=== PATIENT | female | born 1960 | race Caucasian/White ===

== ENCOUNTER 2017-12-02 08:35 | Day surgery (SDC) | payer OTHER ==
[2017-12-02 10:19] LABS: INR 2.1; PARTIAL THROMBOPLASTIN TIME 36.5 sec (23.4-31.0); PROTHROMBIN TIME 22.4 sec (9.4-11.6)
[2017-12-02] MEDS ORDERED: METO1TAB26 PO (10:28)
[2017-12-02] MEDS ORDERED: GLIP10TA10 PO (10:28)
[2017-12-02] MEDS ORDERED: ASPI-1158 PO (10:28)
[2017-12-02] MEDS ORDERED: INSU100I28 SQ (10:28)
[2017-12-02] MEDS ORDERED: METF850T2 PO (10:28)
[2017-12-02] MEDS ORDERED: [UNRECOGNIZED DRUG - OTHER] (10:28)
[2017-12-02] MEDS ORDERED: WARF3TAB28 PO (10:28)
[2017-12-02] MEDS ORDERED: IOHEXOL-300 100 ML BOTTLE ONE (11:23)
[2017-12-02] MEDS ORDERED: LIDOCAINE HCL/PF 1% 10 MG/ML 5ML VIAL ONE (11:23)
[2017-12-02] MEDS ORDERED: FENTANYL CITRATE/PF 50MCG/ML 2ML VIAL ONE (11:32)
[2017-12-02] MEDS ORDERED: MIDAZOLAM HCL 2 MG/2 ML VIAL ONE (11:32)
== END 2017-12-02 15:00 | disposition home or self-care (01) ==
LOC: CCL 08:35
PROVIDERS: ATTEND Specialist
DX: R94.39 Abnormal result of other cardiovascular function study (principal); E66.9 Obesity, unspecified; Z79.01 Long term (current) use of anticoagulants; E78.4 Other hyperlipidemia; I11.9 Hypertensive heart disease without heart failure; I20.9 Angina pectoris, unspecified; Z79.82 Long term (current) use of aspirin
CPT/HCPCS: 36415; 82962; 85610; 85730; 93458; 99152; C1769; C1887; C1893; J1644; J2250; J3010; J3490; Q9967

== ENCOUNTER 2018-04-26 16:58 | Inpatient (IN) | payer OTHER ==
[~2018-04-26] VITALS: Ht 182.9 cm; Wt 104.3 kg
[~2018-04-26 16:58] MED LIST: ASPI-1158 PO; GLIP10TA10 PO; INSU100I28 SQ; METF850T2 PO; METO1TAB26 PO; WARF3TAB28 PO; [UNRECOGNIZED DRUG - OTHER]
[2018-04-26 19:06] LABS: BASOPHILS % 0.7 % (0.0-2.0); EOSINOPHILS % 3.2 % (0.0-5.0); LYMPHOCYTES % 21.1 % (20.0-50.0); MEAN CORPUSCULAR HEMOGLOBIN 22.5 pg (28.0-32.0); MEAN CORPUSCULAR VOLUME 75.2 fL (81.0-99.0); MEAN PLATELET VOLUME 6.9 fl (7.4-10.4); MONOCYTES % 7.8 % (2.0-8.0); NEUTROPHILS % 67.2 % (40.0-76.0); PLATELET 462 x1000/uL (130-400); RED BLOOD CELL COUNT 2.78 mill/uL (4.2-5.4)
[2018-04-26 19:08] LABS: HEMATOCRIT. 20.9 % (36.0-48.0); HEMOGLOBIN. 6.3 g/dL (12.0-16.0)
[2018-04-26 19:09] LABS: CHLORIDE 103 mEq/L (98-107)
[2018-04-26 19:10] LABS: INR 1.9; PROTHROMBIN TIME 18.8 sec (9.1-11.1)
[2018-04-26 20:17] LABS: TOTAL IRON BINDING CAPACITY 426 ug/dL (250-450)
[2018-04-26 23:00] VITALS: BP 130/65
[2018-04-26] MEDS ORDERED: LISI-186 MT (23:56)
[2018-04-26] MEDS ORDERED: NATE60TA PO (23:56)
[2018-04-26] MEDS ORDERED: LEVO88TA7 MT (23:57)
[2018-04-27] VITALS (8 sets, daily range): BP systolic 120–145; BP diastolic 48–66
[2018-04-27] MEDS ORDERED: DULA1.5P SQ (00:01)
[2018-04-27] MEDS ORDERED: METO-385 MT (00:01)
[2018-04-27] MEDS ORDERED: INSU100I28 SQ (00:01)
[2018-04-27] MEDS ORDERED: DEXTROSE 50% WATER 50ML SYRINGE IV PRN (00:45)
[2018-04-27 06:46] LABS: CHLORIDE 103 mEq/L (98-107)
[2018-04-27 06:51] LABS: BASOPHILS % 0.7 % (0.0-2.0); EOSINOPHILS % 2.9 % (0.0-5.0); LYMPHOCYTES % 17.4 % (20.0-50.0); MEAN PLATELET VOLUME 7.2 fl (7.4-10.4); MONOCYTES % 8.7 % (2.0-8.0); NEUTROPHILS % 70.3 % (40.0-76.0); PLATELET 429 x1000/uL (130-400); RED BLOOD CELL COUNT 2.72 mill/uL (4.2-5.4); RED CELL DISTRIBUTION WIDTH 18.8 % (11.6-14.6)
[2018-04-27] MEDS ORDERED: GLIPIZIDE 10MG TABLET PO SCH (07:00)
[2018-04-27] MEDS: INSULIN LISPRO 100 UNITS/ML SUBCUT SCH ×3 (07:50→17:50)
[2018-04-27] MEDS: BLOOD SUGAR DIAGNOSTIC STRIP TEST SCH ×3 (08:19→17:21)
[2018-04-27 08:30] LABS: HEMOGLOBIN. 6.5 g/dL (12.0-16.0)
[2018-04-27 08:31] LABS: HEMATOCRIT. 20.6 % (36.0-48.0)
[2018-04-27] MEDS ORDERED: PANTOPRAZOLE SODIUM 40 MG/VIAL IV SCH (09:00)
[2018-04-27] MEDS: METOPROLOL TARTRATE 25MG TABLET PO SCH ×2 (09:24→17:21)
[2018-04-27 16:14] LABS: HEMOGLOBIN. 7.3 g/dL (12.0-16.0); LYMPHOCYTES % 20.6 % (20.0-50.0); MEAN CORPUSCULAR HEMOGLOBIN 24.3 pg (28.0-32.0); MEAN CORPUSCULAR VOLUME 76.6 fL (81.0-99.0); MONOCYTES % 8.9 % (2.0-8.0); NEUTROPHILS % 65.5 % (40.0-76.0); PLATELET 429 x1000/uL (130-400); RED CELL DISTRIBUTION WIDTH 18.9 % (11.6-14.6)
[2018-04-27] MEDS ORDERED: ATORVASTATIN CALCIUM 10MG TABLET PO SCH (21:00)
== END 2018-04-27 18:40 | disposition home or self-care (01) | DRG 812 ==
LOC: ER 16:58 → 6WST 19:51 → ENRESERV 20:20 → CANRESERV 20:20
PROC: 30233N1 Transfusion of Nonautologous Red Blood Cells into Peripheral Vein, Percutaneous Approach (ICD-10-PCS; principal; 2018-04-27)
DX: D64.9 Anemia, unspecified (principal); E11.9 Type 2 diabetes mellitus without complications; E78.5 Hyperlipidemia, unspecified; E66.09 Other obesity due to excess calories; I11.9 Hypertensive heart disease without heart failure; Z78.0 Asymptomatic menopausal state; Z79.01 Long term (current) use of anticoagulants; Z79.4 Long term (current) use of insulin; Z68.31 Body mass index [BMI] 31.0-31.9, adult; Z86.711 Personal history of pulmonary embolism; Z79.82 Long term (current) use of aspirin; Z79.84 Long term (current) use of oral hypoglycemic drugs; Z79.899 Other long term (current) drug therapy; Z98.891 History of uterine scar from previous surgery
CPT/HCPCS: 36415; 36430; 71045; 80048; 80053; 82962; 83540; 83550; 83690; 83880; 84484; 85025; 85044; 85610; 85730; 86850; 86900; 86920; 93005; 99285; J7040; J7050; P9016

== ENCOUNTER 2018-05-04 09:23 | Inpatient (IN) | payer OTHER ==
[~2018-05-04] VITALS: Ht 185.4 cm; Wt 144.2 kg
[~2018-05-04 09:23] MED LIST changes: -ASPI-1158 PO; +DULA1.5P SQ; -GLIP10TA10 PO; +LEVO88TA7 MT; +LISI-186 MT; +METO-385 MT; +NATE60TA PO; -WARF3TAB28 PO
[2018-05-04 10:21] LABS: CHLORIDE 100 mEq/L (98-107); INR 1.9
[2018-05-04 10:33] LABS: BASOPHILS % 0.5 % (0.0-2.0); EOSINOPHILS % 4.8 % (0.0-5.0); HEMATOCRIT. 24.6 % (36.0-48.0); HEMOGLOBIN. 7.8 g/dL (12.0-16.0); LYMPHOCYTES % 17.8 % (20.0-50.0); MEAN CORPUSCULAR HEMOGLOBIN 24.3 pg (28.0-32.0); MEAN CORPUSCULAR VOLUME 76.6 fL (81.0-99.0); MONOCYTES % 8.3 % (2.0-8.0); NEUTROPHILS % 68.6 % (40.0-76.0); PLATELET 457 x1000/uL (130-400); RED BLOOD CELL COUNT 3.21 mill/uL (4.2-5.4); RED CELL DISTRIBUTION WIDTH 20.3 % (11.6-14.6)
[2018-05-04 14:20] VITALS: BP 125/52
[2018-05-04 16:00] VITALS: BP 115/47
[2018-05-04 16:14] VITALS: BP 132/74
[2018-05-04] MEDS ORDERED: LISI-186 MT (18:24)
[2018-05-04] MEDS ORDERED: METO-396 MT (18:24)
[2018-05-04] MEDS ORDERED: DULA1.5P SQ (18:24)
[2018-05-04] MEDS ORDERED: WARF3TAB58 MT (18:24)
[2018-05-04] MEDS ORDERED: LEVO88TA7 MT (18:24)
[2018-05-04] MEDS ORDERED: INSU100I28 SQ (18:24)
[2018-05-04] MEDS ORDERED: ROSU10TA MT (18:24)
[2018-05-04] MEDS ORDERED: NATE60TA MT (18:24)
[2018-05-04] MEDS ORDERED: ASPI81TA47 MT (18:24)
[2018-05-04] MEDS ORDERED: METF10004 MT (18:24)
[2018-05-04 20:00] VITALS: BP 122/63
[2018-05-04 21:44] LABS: HEMATOCRIT 25.4 % (36.0-48.0); HEMOGLOBIN 7.9 g/dL (12.0-16.0)
[2018-05-04 21:50] LABS: INR 1.9; PROTHROMBIN TIME 18.9 sec (9.1-11.1)
[2018-05-04 22:43] VITALS: BP 125/46
[2018-05-04 23:43] VITALS: BP 133/64
[2018-05-05] VITALS: BP 133/64
[2018-05-05 00:43] VITALS: BP 120/51
[2018-05-05 01:35] VITALS: BP 139/64
[2018-05-05 02:28] LABS: HEMATOCRIT 27.1 % (36.0-48.0)
[2018-05-05 02:33] LABS: INR 1.9; PROTHROMBIN TIME 18.7 sec (9.1-11.1)
[2018-05-05 04:00] VITALS: BP 133/52
[2018-05-05 06:33] LABS: BASOPHILS % 0.6 % (0.0-2.0); EOSINOPHILS % 5.5 % (0.0-5.0); HEMATOCRIT. 26.4 % (36.0-48.0); HEMOGLOBIN. 8.6 g/dL (12.0-16.0); LYMPHOCYTES % 20.6 % (20.0-50.0); MEAN CORPUSCULAR HEMOGLOBIN 25.1 pg (28.0-32.0); MEAN CORPUSCULAR VOLUME 77.6 fL (81.0-99.0); MEAN PLATELET VOLUME 7.2 fl (7.4-10.4); MONOCYTES % 8.6 % (2.0-8.0); NEUTROPHILS % 64.7 % (40.0-76.0); PLATELET 394 x1000/uL (130-400); RED CELL DISTRIBUTION WIDTH 20.1 % (11.6-14.6)
[2018-05-05 07:45] LABS: CHLORIDE 104 mEq/L (98-107)
[2018-05-05 08:00] VITALS: BP 121/41
[2018-05-05 09:24] VITALS: BP 121/41
== END 2018-05-05 10:40 | disposition home or self-care (01) | DRG 812 ==
LOC: ER 09:51 → 6EST 11:22 → EDBEDREQ 11:33 → ENRESERV 11:58
PROVIDERS: ATTEND Specialist
PROC: 30233N1 Transfusion of Nonautologous Red Blood Cells into Peripheral Vein, Percutaneous Approach (ICD-10-PCS; principal; 2018-05-04)
DX: D64.9 Anemia, unspecified (principal); E11.65 Type 2 diabetes mellitus with hyperglycemia; E78.5 Hyperlipidemia, unspecified; I11.9 Hypertensive heart disease without heart failure; N92.0 Excessive and frequent menstruation with regular cycle; I51.7 Cardiomegaly; Z79.01 Long term (current) use of anticoagulants; Z79.4 Long term (current) use of insulin; Z86.711 Personal history of pulmonary embolism
CPT/HCPCS: 36415; 71045; 80048; 80053; 85014; 85018; 85025; 85049; 85384; 85610; 86850; 86900; 86920; 99285; J7030; J7040; P9016

== ENCOUNTER 2019-05-24 12:21 | Inpatient (IN) | payer OTHER ==
[2019-05-24] VITALS (9 sets, daily range): BP systolic 124–147; BP diastolic 58–74
[~2019-05-24] VITALS: Ht 182.9 cm; Wt 146.1 kg
[~2019-05-24 12:21] MED LIST changes: +ASPI81TA47 MT; +CRES10 MT; +METF-415 PO; +METF-416 MT; -METF850T2 PO; +METO-396 MT; +NATE60TA MT
[2019-05-24 13:53] LABS: BASOPHILS % 0.2 % (0.0-2.0); EOSINOPHILS % 2.4 % (0.0-5.0); LYMPHOCYTES % 19.1 % (20.0-50.0); MEAN CORPUSCULAR VOLUME 76.9 fL (81.0-99.0); MEAN PLATELET VOLUME 7.5 fl (7.4-10.4); NEUTROPHILS % 70.3 % (40.0-76.0); PLATELET 500 x1000/uL (130-400); RED BLOOD CELL COUNT 2.87 mill/uL (4.2-5.4); RED CELL DISTRIBUTION WIDTH 18.7 % (11.6-14.6)
[2019-05-24 13:57] LABS: CHLORIDE 102 mEq/L (98-107)
[2019-05-24 14:00] LABS: HEMOGLOBIN. 6.6 g/dL (12.0-16.0)
[2019-05-24 14:01] LABS: HEMATOCRIT. 22.1 % (36.0-48.0)
[2019-05-24 14:08] LABS: T4 FREE 1.18 ng/dL (0.76-1.46)
[2019-05-24 14:11] LABS: TOTAL IRON BINDING CAPACITY 490 ug/dL (250-450)
[2019-05-24] MEDS ORDERED: CLONIDINE 0.1MG TABLET PO PRN (17:15)
[2019-05-24] MEDS ORDERED: MAGNESIUM/ALUMINUM HYDROXIDE/SIMETHICONE 30ML UDC PO PRN (17:15)
[2019-05-24] MEDS ORDERED: DEXTROSE 50% WATER 50ML SYRINGE IV PRN (17:15)
[2019-05-24] MEDS ORDERED: ACETAMINOPHEN 325MG TABLET PO PRN (17:15)
[2019-05-24] MEDS ORDERED: ONDANSETRON HCL 4MG/2ML INJ IV PRN (17:15)
[2019-05-24] MEDS ORDERED: DIPHENHYDRAMINE 50MG/ML VIAL IV PRN (17:15)
[2019-05-24] MEDS ORDERED: SODIUM CHLORIDE 0.9% 1,000 ML IV SCH (18:00)
[2019-05-24] MEDS ORDERED: TEMAZEPAM 15MG CAPSULE PO PRN (18:15)
[2019-05-24] MEDS ORDERED: MAGNESIUM HYDROXIDE 400MG/5ML 30ML UDC PO PRN (18:15)
[2019-05-24] MEDS: INSULIN LISPRO 100 UNITS/ML SUBCUT SCH ×2 (18:20→21:00)
[2019-05-24] MEDS ORDERED: MVI, ADULT NO.1 10 ML, FOLIC ACID 1 MG, THIAMINE HCL 100 MG in SODIUM CHLORIDE 0.9% 1,0... IV ONE ×4 (20:00)
[2019-05-24] MEDS ORDERED: IRON SUCROSE COMPLEX 100 MG/5 ML ML IV NR (21:00)
[2019-05-24] MEDS: METOPROLOL TARTRATE 50MG TABLET PO SCH (21:22)
[2019-05-24] MEDS: BLOOD SUGAR DIAGNOSTIC STRIP TEST SCH (21:22)
[2019-05-24] MEDS: INSULIN GLARGINE UD 100 UNITS/ML SYR SUBCUT SCH (21:23)
[2019-05-25] VITALS (18 sets, daily range): BP systolic 120–167; BP diastolic 46–81
[2019-05-25] MEDS: LEVOTHYROXINE SODIUM 112MCG TABLET PO SCH (06:05)
[2019-05-25] MEDS: BLOOD SUGAR DIAGNOSTIC STRIP TEST SCH ×4 (06:05→21:00)
[2019-05-25 07:26] LABS: BASOPHILS % 0.7 % (0.0-2.0); EOSINOPHILS % 2.9 % (0.0-5.0); HEMATOCRIT. 22.7 % (36.0-48.0); HEMOGLOBIN. 7.2 g/dL (12.0-16.0); LYMPHOCYTES % 15.9 % (20.0-50.0); MEAN CORPUSCULAR HEMOGLOBIN 24.5 pg (28.0-32.0); MEAN PLATELET VOLUME 7.2 fl (7.4-10.4); MONOCYTES % 9.6 % (2.0-8.0); NEUTROPHILS % 70.9 % (40.0-76.0); PLATELET 406 x1000/uL (130-400); RED BLOOD CELL COUNT 2.95 mill/uL (4.2-5.4); RED CELL DISTRIBUTION WIDTH 18.3 % (11.6-14.6)
[2019-05-25] MEDS: METOPROLOL TARTRATE 50MG TABLET PO SCH ×2 (08:34→21:10)
[2019-05-25] MEDS: INSULIN LISPRO 100 UNITS/ML SUBCUT SCH ×4 (08:34→21:11)
[2019-05-25] MEDS: METFORMIN HCL 850MG TABLET PO SCH ×2 (08:34→17:33)
[2019-05-25 09:06] LABS: CHLORIDE 103 mEq/L (98-107)
[2019-05-25 11:53] LABS: BASOPHILS % 0.6 % (0.0-2.0); EOSINOPHILS % 2.9 % (0.0-5.0); HEMATOCRIT. 25.2 % (36.0-48.0); LYMPHOCYTES % 15.2 % (20.0-50.0); MEAN CORPUSCULAR HEMOGLOBIN 24.5 pg (28.0-32.0); MEAN CORPUSCULAR VOLUME 77.6 fL (81.0-99.0); MEAN PLATELET VOLUME 6.9 fl (7.4-10.4); MONOCYTES % 9.2 % (2.0-8.0); NEUTROPHILS % 72.1 % (40.0-76.0); PLATELET 433 x1000/uL (130-400); RED BLOOD CELL COUNT 3.24 mill/uL (4.2-5.4); RED CELL DISTRIBUTION WIDTH 18.7 % (11.6-14.6)
[2019-05-25 12:03] LABS: PARTIAL THROMBOPLASTIN TIME 25.6 sec (23.4-31.0)
[2019-05-25] MEDS: IRON SUCROSE COMPLEX 100 MG/5 ML ML IV SCH (21:09)
[2019-05-25] MEDS: INSULIN GLARGINE UD 100 UNITS/ML SYR SUBCUT SCH (21:11)
[2019-05-26] VITALS (11 sets, daily range): BP systolic 111–151; BP diastolic 51–75
[2019-05-26] MEDS: LEVOTHYROXINE SODIUM 112MCG TABLET PO SCH (06:13)
[2019-05-26] MEDS: BLOOD SUGAR DIAGNOSTIC STRIP TEST SCH ×4 (06:13→21:00)
[2019-05-26] MEDS: METFORMIN HCL 850MG TABLET PO SCH ×2 (06:20→17:46)
[2019-05-26] MEDS: INSULIN LISPRO 100 UNITS/ML SUBCUT SCH ×4 (06:21→21:51)
[2019-05-26] MEDS: METOPROLOL TARTRATE 50MG TABLET PO SCH ×2 (09:22→21:50)
[2019-05-26 09:50] LABS: BASOPHILS % 0.5 % (0.0-2.0); EOSINOPHILS % 3.2 % (0.0-5.0); HEMATOCRIT. 25.4 % (36.0-48.0); HEMOGLOBIN. 8.3 g/dL (12.0-16.0); LYMPHOCYTES % 15.5 % (20.0-50.0); MEAN CORPUSCULAR HEMOGLOBIN 25.5 pg (28.0-32.0); MEAN CORPUSCULAR VOLUME 78.5 fL (81.0-99.0); MEAN PLATELET VOLUME 7.1 fl (7.4-10.4); MONOCYTES % 9.7 % (2.0-8.0); NEUTROPHILS % 71.1 % (40.0-76.0); PLATELET 378 x1000/uL (130-400); RED BLOOD CELL COUNT 3.24 mill/uL (4.2-5.4); RED CELL DISTRIBUTION WIDTH 18.7 % (11.6-14.6)
[2019-05-26 09:53] LABS: CHLORIDE 108 mEq/L (98-107)
[2019-05-26] MEDS: IRON SUCROSE COMPLEX 100 MG/5 ML ML IV SCH (10:48)
[2019-05-26] MEDS ORDERED: ONDANSETRON HCL 4MG/2ML INJ ONE (12:13)
[2019-05-26] MEDS ORDERED: DEXAMETHASONE 4MG/ML 1ML VIAL ONE (12:13)
[2019-05-26] MEDS ORDERED: PROPOFOL 200MG/20ML VIAL IV ONE ×2 (12:13→12:44)
[2019-05-26] MEDS ORDERED: MIDAZOLAM HCL 2 MG/2 ML VIAL ONE (12:13)
[2019-05-26] MEDS ORDERED: FENTANYL CITRATE/PF 50MCG/ML 5ML VIAL ONE (12:14)
[2019-05-26] MEDS ORDERED: ONDANSETRON HCL 4MG/2ML INJ IV PRN (13:45)
[2019-05-26] MEDS ORDERED: MEPERIDINE HCL/PF 25MG/ML CPJ IV PRN (13:45)
[2019-05-26] MEDS ORDERED: HYDROMORPHONE HCL/PF 2MG/ML CPJ IV PRN (13:45)
[2019-05-26] MEDS ORDERED: LABETALOL 5MG/ML SYR 20 MG/4 ML SYRINGE IV PRN (13:45)
[2019-05-26] MEDS ORDERED: IBUPROFEN 800MG TABLET PO PRN (14:30)
[2019-05-26] MEDS: INSULIN GLARGINE UD 100 UNITS/ML SYR SUBCUT SCH (21:52)
[2019-05-27] VITALS (17 sets, daily range): BP systolic 114–151; BP diastolic 45–77
[2019-05-27] MEDS: LEVOTHYROXINE SODIUM 112MCG TABLET PO SCH (06:22)
[2019-05-27] MEDS: BLOOD SUGAR DIAGNOSTIC STRIP TEST SCH ×4 (06:23→20:45)
[2019-05-27 06:58] LABS: CHLORIDE 106 mEq/L (98-107)
[2019-05-27 07:09] LABS: HEMATOCRIT. 24.1 % (36.0-48.0); HEMOGLOBIN. 7.7 g/dL (12.0-16.0); MEAN CORPUSCULAR HEMOGLOBIN 25.5 pg (28.0-32.0); MEAN PLATELET VOLUME 7.1 fl (7.4-10.4); PLATELET 379 x1000/uL (130-400); RED BLOOD CELL COUNT 3.01 mill/uL (4.2-5.4); RED CELL DISTRIBUTION WIDTH 19.2 % (11.6-14.6)
[2019-05-27] MEDS: METFORMIN HCL 850MG TABLET PO SCH ×2 (08:32→17:30)
[2019-05-27] MEDS: METOPROLOL TARTRATE 50MG TABLET PO SCH ×2 (08:32→20:45)
[2019-05-27] MEDS: INSULIN LISPRO 100 UNITS/ML SUBCUT SCH ×4 (08:33→20:45)
[2019-05-27 11:46] LABS: PLATELET ESTIMATE NORMAL
[2019-05-27 19:39] LABS: HEMATOCRIT 28.4 % (36.0-48.0); HEMOGLOBIN 9.1 g/dL (12.0-16.0)
[2019-05-27] MEDS ORDERED: LEVO125T8 MT (20:14)
== END 2019-05-27 21:09 | disposition home or self-care (01) | DRG 742 ==
LOC: ER 12:21 → 3WST 14:14 → EDBEDREQ 14:21 → ENRESERV 14:30 → CANRESERV 14:30 → ENRESERV 16:12 → 3WST 17:30
PROVIDERS: ADMIT Internal Medicine; ATTEND Internal Medicine
PROC: 30233N1 Transfusion of Nonautologous Red Blood Cells into Peripheral Vein, Percutaneous Approach (ICD-10-PCS; principal; 2019-05-24)
PROC: 0UB98ZZ Excision of Uterus, Via Natural or Artificial Opening Endoscopic (ICD-10-PCS; 2019-05-26)
PROC: 0UDB8ZZ Extraction of Endometrium, Via Natural or Artificial Opening Endoscopic (ICD-10-PCS; 2019-05-26)
DX: D25.9 Leiomyoma of uterus, unspecified (principal); Z68.41 Body mass index [BMI] 40.0-44.9, adult; N92.0 Excessive and frequent menstruation with regular cycle; E03.9 Hypothyroidism, unspecified; I48.91 Unspecified atrial fibrillation; I49.3 Ventricular premature depolarization; E11.65 Type 2 diabetes mellitus with hyperglycemia; Z79.4 Long term (current) use of insulin; E78.5 Hyperlipidemia, unspecified; R00.8 Other abnormalities of heart beat; Z86.711 Personal history of pulmonary embolism; E66.01 Morbid (severe) obesity due to excess calories; E78.00 Pure hypercholesterolemia, unspecified; I10 Essential (primary) hypertension; K64.9 Unspecified hemorrhoids; N93.8 Other specified abnormal uterine and vaginal bleeding; R79.1 Abnormal coagulation profile; Z79.01 Long term (current) use of anticoagulants; Z79.899 Other long term (current) drug therapy; Z80.0 Family history of malignant neoplasm of digestive organs; Z82.49 Family history of ischemic heart disease and other diseases of the circulatory system; Z83.3 Family history of diabetes mellitus; Z87.19 Personal history of other diseases of the digestive system; Z79.82 Long term (current) use of aspirin; D50.9 Iron deficiency anemia, unspecified
CPT/HCPCS: 36415; 71045; 80048; 82962; 83540; 83550; 83880; 84439; 84443; 84481; 84484; 85014; 85018; 85044; 86850; 86900; 86920; 88305; 93005; 99291; J1100; J1815; J2250; J2405; J2704; J3010; J3411; J3490; J7030; J7040; P9016; P9021

== ENCOUNTER 2019-06-08 11:01 | Inpatient (IN) | payer OTHER ==
[~2019-06-08] VITALS: Ht 182.9 cm; Wt 145.6 kg
[~2019-06-08 11:01] MED LIST changes: +LEVO125T8 MT; -LEVO88TA7 MT; -METF-415 PO; -METO-396 MT; -METO1TAB26 PO; -NATE60TA PO; -[UNRECOGNIZED DRUG - OTHER]
[2019-06-08 11:46] LABS: UCG SCREEN NEGATIVE
[2019-06-08 11:51] LABS: BASOPHILS % 0.2 % (0.0-2.0); EOSINOPHILS % 2.8 % (0.0-5.0); HEMATOCRIT. 33.1 % (36.0-48.0); HEMOGLOBIN. 10.7 g/dL (12.0-16.0); LYMPHOCYTES % 19.6 % (20.0-50.0); MEAN CORPUSCULAR HEMOGLOBIN 27.5 pg (28.0-32.0); MEAN CORPUSCULAR VOLUME 84.9 fL (81.0-99.0); MEAN PLATELET VOLUME 7.3 fl (7.4-10.4); MONOCYTES % 7.1 % (2.0-8.0); NEUTROPHILS % 70.3 % (40.0-76.0); PLATELET 454 x1000/uL (130-400); RED BLOOD CELL COUNT 3.89 mill/uL (4.2-5.4); RED CELL DISTRIBUTION WIDTH 22.7 % (11.6-14.6)
[2019-06-08 12:00] LABS: CHLORIDE 106 mEq/L (98-107)
[2019-06-08 12:15] LABS: PLATELET ESTIMATE SLIGHTLY INCREASED
[2019-06-08 12:21] LABS: PARTIAL THROMBOPLASTIN TIME 28.9 sec (23.4-31.0); PROTHROMBIN TIME 10.3 sec (9.6-11.0)
[2019-06-08] MEDS ORDERED: LIDOCAINE HCL/PF 1% 10 MG/ML 5ML VIAL ONE (12:52)
[2019-06-08] MEDS ORDERED: MIDAZOLAM HCL 2 MG/2 ML VIAL ONE ×2 (12:52→15:31)
[2019-06-08] MEDS ORDERED: FENTANYL CITRATE/PF 50MCG/ML 2ML VIAL ONE (12:52)
[2019-06-08] MEDS ORDERED: ROCURONIUM BROMIDE 10MG/ML VIAL 5ML IV ONE ×2 (12:53→15:32)
[2019-06-08] MEDS ORDERED: PROPOFOL 200MG/20ML VIAL IV ONE (12:53)
[2019-06-08] MEDS ORDERED: DEXAMETHASONE 4MG/ML 1ML VIAL ONE (12:53)
[2019-06-08] MEDS ORDERED: LACTATED RINGERS 1,000 ML IV SCH (13:00)
[2019-06-08] MEDS ORDERED: VASOPRESSIN 20 UNIT/ML 1ML ONE (14:27)
[2019-06-08] MEDS ORDERED: BUPIVACAINE HCL/EPINEPHRINE 0.5%/0.0005 30ML ONE (14:27)
[2019-06-08] MEDS ORDERED: METHYLENE BLUE 50 MG/10 ML AMP IV ONE (14:27)
[2019-06-08] MEDS ORDERED: SKIN ADHESIVE 0.7 GM EA TOP ONE ×2 (14:46→19:41)
[2019-06-08] MEDS ORDERED: SUCCINYLCHOLINE CHLORIDE 200MG/10ML IV ONE (14:49)
[2019-06-08] MEDS ORDERED: SODIUM CHLORIDE 0.9% 10ML VIAL ONE ×3 (14:49→15:21)
[2019-06-08] MEDS ORDERED: EPHEDRINE SULFATE 50MG/ML VIAL ONE ×3 (14:49→18:59)
[2019-06-08] MEDS ORDERED: PHENYLEPHRINE HCL 10 MG/ML 1ML (IV VIAL) IV ONE (14:50)
[2019-06-08] MEDS ORDERED: CEFAZOLIN SODIUM 1000MG/VIAL ONE ×2 (15:14→15:21)
[2019-06-08] MEDS ORDERED: GLYCOPYRROLATE 0.2 MG/ML 2ML VIAL ONE ×3 (15:52→20:00)
[2019-06-08] MEDS ORDERED: NEOSTIGMINE METHYLSULFATE 1MG/ML 10 ML VIAL ONE (19:20)
[2019-06-08] MEDS ORDERED: ONDANSETRON HCL 4MG/2ML INJ ONE (19:29)
[2019-06-08] MEDS ORDERED: DEXT 5%/LACTATED RINGERS 1,000 ML IV SCH (20:00)
[2019-06-08] MEDS ORDERED: ONDANSETRON HCL 4MG/2ML INJ IV PRN (20:30)
[2019-06-08] MEDS: HYDROMORPHONE HCL/PF 2MG/ML CPJ IV PRN ×3 (20:34→20:57)
[2019-06-08] MEDS ORDERED: NALOXONE INJ IV PRN (20:45)
[2019-06-08] MEDS ORDERED: DIPHENHYDRAMINE INJ IV PRN (20:45)
[2019-06-08] MEDS ORDERED: MORPHINE PCA 50MG/50ML IV PRN (20:45)
[2019-06-08] MEDS ORDERED: ONDANSETRON INJ IV PRN (20:45)
[2019-06-08] MEDS ORDERED: IBUPROFEN 800MG TABLET PO PRN (21:00)
[2019-06-08 22:00] VITALS: BP 127/51
[2019-06-09] VITALS: BP_SYST 127; BP_SYST 152; BP_DIAS 57
[2019-06-09] MEDS ORDERED: DEXTROSE 50% WATER 50ML SYRINGE IV PRN
[2019-06-09] MEDS: BLOOD SUGAR DIAGNOSTIC STRIP TEST SCH ×5 (01:00→20:12)
[2019-06-09] MEDS: INSULIN LISPRO 100 UNITS/ML SUBCUT SCH ×5 (02:09→20:18)
[2019-06-09] MEDS: DEXT 5%/LACTATED RINGERS 1,000 ML IV SCH ×3 (02:31→16:03)
[2019-06-09 04:00] VITALS: BP 143/55
[2019-06-09 07:44] LABS: HEMATOCRIT. 28.1 % (36.0-48.0); MEAN CORPUSCULAR HEMOGLOBIN 27.2 pg (28.0-32.0); MEAN CORPUSCULAR VOLUME 84.6 fL (81.0-99.0); MEAN PLATELET VOLUME 7.4 fl (7.4-10.4); PLATELET 422 x1000/uL (130-400); RED BLOOD CELL COUNT 3.32 mill/uL (4.2-5.4); RED CELL DISTRIBUTION WIDTH 22.4 % (11.6-14.6)
[2019-06-09 08:00] VITALS: BP 109/52
[2019-06-09 08:54] LABS: CHLORIDE 104 mEq/L (98-107)
[2019-06-09 09:57] LABS: PLATELET ESTIMATE SLIGHTLY INCREASED
[2019-06-09] MEDS ORDERED: IOHEXOL-300 100 ML BOTTLE ONE (10:44)
[2019-06-09] MEDS ORDERED: INFLUENZA VIRUS VACCINE(AFLURIA) 0.5ML SYR IM ONE (11:30)
[2019-06-09 12:00] VITALS: BP 104/52
[2019-06-09 16:00] VITALS: BP 117/45
[2019-06-09 20:00] VITALS: BP 134/51
[2019-06-10] VITALS: BP 127/55
[2019-06-10] MEDS: DEXT 5%/LACTATED RINGERS 1,000 ML IV SCH ×2 (00:43→07:48)
[2019-06-10 04:00] VITALS: BP 117/55
[2019-06-10] MEDS: BLOOD SUGAR DIAGNOSTIC STRIP TEST SCH (06:11)
[2019-06-10 06:22] LABS: BASOPHILS % 0.8 % (0.0-2.0); EOSINOPHILS % 1.6 % (0.0-5.0); HEMATOCRIT. 27.4 % (36.0-48.0); HEMOGLOBIN. 8.7 g/dL (12.0-16.0); LYMPHOCYTES % 18.1 % (20.0-50.0); MEAN CORPUSCULAR HEMOGLOBIN 27.3 pg (28.0-32.0); MEAN CORPUSCULAR VOLUME 86.1 fL (81.0-99.0); MEAN PLATELET VOLUME 7.7 fl (7.4-10.4); MONOCYTES % 10.9 % (2.0-8.0); NEUTROPHILS % 68.6 % (40.0-76.0); PLATELET 372 x1000/uL (130-400); RED BLOOD CELL COUNT 3.18 mill/uL (4.2-5.4); RED CELL DISTRIBUTION WIDTH 23.4 % (11.6-14.6)
[2019-06-10 06:36] LABS: CHLORIDE 106 mEq/L (98-107)
[2019-06-10] MEDS: INSULIN LISPRO 100 UNITS/ML SUBCUT SCH (07:51)
[2019-06-10 08:00] VITALS: BP 136/68
[2019-06-10 10:12] VITALS: BP 131/61
== END 2019-06-10 10:31 | disposition home or self-care (01) | DRG 742 ==
LOC: OR 11:01 → 6EST 23:09
PROVIDERS: ADMIT Obstetrics & Gynecology Obstetrics; ATTEND Obstetrics & Gynecology Obstetrics
PROC: 0UT9FZZ Resection of Uterus, Via Natural or Artificial Opening With Percutaneous Endoscopic Assistance (ICD-10-PCS; principal; 2019-06-08)
PROC: 0UT2FZZ Resection of Bilateral Ovaries, Via Natural or Artificial Opening With Percutaneous Endoscopic Assistance (ICD-10-PCS; 2019-06-08)
PROC: 0UT7FZZ Resection of Bilateral Fallopian Tubes, Via Natural or Artificial Opening With Percutaneous Endoscopic Assistance (ICD-10-PCS; 2019-06-08)
PROC: 8E0W4CZ Robotic Assisted Procedure of Trunk Region, Percutaneous Endoscopic Approach (ICD-10-PCS; 2019-06-08)
DX: N85.01 Benign endometrial hyperplasia (principal); Z68.41 Body mass index [BMI] 40.0-44.9, adult; D25.9 Leiomyoma of uterus, unspecified; E11.9 Type 2 diabetes mellitus without complications; E78.5 Hyperlipidemia, unspecified; E03.9 Hypothyroidism, unspecified; E66.09 Other obesity due to excess calories; N95.0 Postmenopausal bleeding; D64.9 Anemia, unspecified; I10 Essential (primary) hypertension; Z79.4 Long term (current) use of insulin; Z83.3 Family history of diabetes mellitus; Z86.711 Personal history of pulmonary embolism; Z80.0 Family history of malignant neoplasm of digestive organs; Z79.01 Long term (current) use of anticoagulants; Z98.891 History of uterine scar from previous surgery
CPT/HCPCS: 36415; 74178; 80048; 81025; 82962; 86850; 86900; 86920; 88305; 88307; 90686; J0171; J0330; J0690; J1100; J1170; J1815; J2250; J2270; J2370; J2405; J2704; J2710; J3010; J3490; J7121; Q9967; Q9968